=== PATIENT | female | born 1975 | race Caucasian/White ===

== ENCOUNTER 2019-08-14 12:04 | Emergency (ER) | payer SELFPAY ==
--- NOTE | 2019-08-14 12:18 | ED Physician Documentation ---
General Adult - HISTORIAN Historian: patient - HPI Stated Complaint: right jaw swelling Chief Complaint: General Adult Additional Information: Patient presents to ED with right jaw pain and swelling x 2 days. Patient states she first noticed the pain in her jaw 2 days ago when she went to the walk in cooler at work. She reports the swelling began the following day. She denies fever, chills, sore throat, headache, tooth pain or nasal congestion. Patient reports the pain is worse just before eating. Onset: days ago (2) Timing: still present, worse Severity: moderate - ROS CONST: denies: fever EYES/ENT: denies: sore throat, nasal drainage, nasal congestion CVS/RESP: denies: chest pain, shortness of breath, cough GI/: denies: abdominal pain, nausea MS/SKIN/LYMPH: none NEURO/PSYCH: denies: headache - PAST HX Past History: none Other History: none Surgeries/Procedures: none Allergies/Adverse Reactions: Allergies Allergy/AdvReac Type Severity Reaction Status Date / Time tramadol Allergy Rash Verified 08/14/19 12:18 Home Medications: Ambulatory Orders Medication Instructions Recorded Bupropion HCl [Wellbutrin Sr] 150 mg PO BID 08/14/19 Cholecalciferol [Vitamin D-3] 1,000 unit PO BID 08/14/19 Clindamycin HCl 300 mg PO QID #40 capsule 08/14/19 Ketorolac Tromethamine [Toradol] 10 mg PO Q6H #20 tablet 08/14/19 Levothyroxine Sodium [Synthroid] 150 mcg PO DAILY 08/14/19 Omeprazole 40 mg PO DAILY 08/14/19 Topiramate [Topamax] 200 mg PO DAILY 08/14/19 - SOCIAL HX Smoking History: cigarettes, greater than 1 pack/day Alcohol Use: none Drug Use: none - FAMILY HX Family History: No - REVIEWED ASSESSMENTS Nursing Assessment Reviewed: Yes Vitals Reviewed: Yes General Adult Physical Exam - PHYSICAL EXAM GENERAL APPEARANCE: no distress EENT: eye inspection normal, other (right mandibular swelling tenderness ) NECK: supple. No: lymphadenopathy RESPIRATORY: no resp distress, breath sounds normal CVS: reg rate & rhythm ABDOMEN: soft BACK: normal inspection SKIN: warm/dry EXTREMITIES: non-tender NEURO: oriented X3, mood/affect nml Discharge Clincal Impression: Sialadenitis Prescriptions: Clindamycin HCl 300 mg PO QID #40 capsule Ketorolac Tromethamine [Toradol] 10 mg PO Q6H #20 tablet Referrals: Primary Doctor,No [Primary Care Provider] - 2 Days Additional Instructions: 1. Take antibiotic until gone 2. Massage/Milk the salivary gland every 2-3 hours to help mobilize stones 3. Apply warm moist heat to area 4. Take Toradol as directed to reduce inflammation and help stone pass 5. Follow up with PCP within 1 week 6. Return to ER for new or worsening symptoms Condition: Stable Disposition: 01 HOME, SELF-CARE Decision to Admit: NO Date of Decison to Admit: 08/14/19 Decision Time: 12:31
[2019-08-14 12:27] VITALS: BP 120/90
== END 2019-08-14 12:39 | disposition home or self-care (01) ==
LOC: ED 12:04
DX: K11.20 Sialoadenitis, unspecified (principal); F17.210 Nicotine dependence, cigarettes, uncomplicated
CPT/HCPCS: 99281; 99284